=== PATIENT | female | born 1990 | race Caucasian/White ===

== ENCOUNTER 2020-10-23 14:52 | Emergency (ER) | payer MEDICAID ==
[~2020-10-23] VITALS: Ht 182.9 cm; Wt 86.8 kg
[~2020-10-23 14:52] MED LIST: GUAI120015 PO
[2020-10-23 16:51] VITALS: BP 123/64
--- NOTE | 2020-10-23 16:53 | NUR ---
MARIO IN ROOM 7, TECH WAS MADE AWARE OF 16 BEING ON THE BOARD NEXT
[2020-10-23] MEDS ORDERED: sulfamethoxazole/trimethoprim DS (800/160mg) tablet PO ONE (17:35)
[2020-10-23] MEDS ORDERED: CEPH-585 PO (17:35)
[2020-10-23] MEDS ORDERED: SULF1TAB45 PO (17:35)
[2020-10-23] MEDS ORDERED: cephalexin 250mg capsule PO ONE (17:35)
== END 2020-10-23 17:51 | disposition home or self-care (01) ==
LOC: ER 14:52
DX: L03.115 Cellulitis of right lower limb (principal); M79.661 Pain in right lower leg; R60.9 Edema, unspecified; Z79.2 Long term (current) use of antibiotics; Z79.899 Other long term (current) drug therapy
CPT/HCPCS: 93971; 99284